=== PATIENT | female | born 2000 | race Caucasian/White ===

== ENCOUNTER 2024-01-19 04:50 | Inpatient (IN) | payer OTHER ==
[2024-01-19] MEDS ORDERED: miSOPROStoL 200 MCG TAB RECTAL PRN (08:12)
[2024-01-19] MEDS ORDERED: TERBUTALINE 1 MG/ML VIAL SQ PRN (08:12)
[2024-01-19] MEDS ORDERED: METHYLERGONOVINE 0.2 MG/ML 1 ML AMP IM PRN (08:12)
[2024-01-19] MEDS ORDERED: TRANEXAMIC 1,000 MG/100ML-NACL 1,000 MG in EMPTY BAG 1 BAG IV PRN (08:12)
[2024-01-19] MEDS ORDERED: CARBOPROST TROMETHAMINE 250 MCG/ML 1 ML AMP IM PRN (08:12)
[2024-01-19] MEDS ORDERED: miSOPROStoL 200 MCG TAB PO PRN (08:12)
[2024-01-19] MEDS ORDERED: OXYTOCIN 10 UNIT/ML 1 ML VIAL IM PRN (08:12)
[2024-01-19] MEDS: NALBUPHINE 10 MG/ML (10 ML MDV) IV PRN (08:22)
[2024-01-19] MEDS: LACTATED RINGERS 1,000 ML IV SCH (08:23)
[2024-01-19 08:38] LABS: Basophils % (A) 0 %; Eosinophils % (A) 0 %; HCT 37.8 % (34.0-46.0); HGB 12.8 gm/dL (11.4-16.0); Lymphocytes # (A) 1.6 k/uL (1.0-4.8); Lymphocytes % (A) 13 %; MCH 30.8 pg (25.0-35.0); MCHC 33.9 g/dL (31.0-37.0); MCV 90.9 fL (80.0-100.0); Mean Platelet Volume 11.3; Monocytes # (A) 0.5 k/uL (0-1.0); Monocytes % (A) 4 %; Neutrophils # (A) 10.8 k/uL (1.3-7.7); Neutrophils % (A) 82 %; Platelet Count 144 k/uL (150-450); RBC 4.16 m/uL (3.80-5.40); RDW 12.5 % (11.5-15.5); WBC 13.2 k/uL (3.8-10.6)
[2024-01-19 08:57] VITALS: RESP 16
--- NOTE | 2024-01-19 09:21 | P.HPOB ---
History of Present Illness H&P Date: 01/19/24 Chief Complaint: uterine contractions Ms. Zapien is a 23 year old at 39 weeks and 6 days with EDC of 01/20/2024 by 7 week US who presents with regular, painful uterine contractions. 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 She also vaped tobacco during the . The fetus is estimated to be in the 65%ile based on a 32 week US. work-up: blood type O positive, antibody screen negative, rubella immune, VDRL non-reactive, HBsAg negative, HIV negative, HCV Ab non-reactive, gonorrhea negative, chlamydia negative, 1 hour GTT wnl, GBS negative. Past Medical History Past Medical History: No Reported History History of Any Multi-Drug Resistant Organisms: None Reported Past Surgical History: No Surgical Hx Reported Past Anesthesia/Blood Transfusion Reactions: No Reported Reaction Past Psychological History: No Psychological Hx Reported Smoking Status: Vaper Past Alcohol Use History: None Reported Past Drug Use History: None Reported - Past Family History Mother Family Medical History: No Reported History Medications and Allergies Home Medications Medication Instructions Recorded Confirmed Type Vit No.179/Iron/Folic 1 each PO DAILY 01/19/24 01/19/24 History [ Tablet] Allergies Allergy/AdvReac Type Severity Reaction Status Date / Time No Known Allergies Allergy Verified 01/19/24 05:44 Exam Vital Signs Temp Pulse Resp BP Pulse Ox 01/19/24 08:50 97.5 F L 85 16 128/84 96 Intake and Output 01/18/24 01/19/24 01/19/24 22:59 06:59 14:59 Other: Weight 86.183 kg 86.183 kg Focused physical exam is performed. This is a healthy-appearing in no apparent distress. Breathing is non-labored. Abdomen is gravid and non-tender. Cervical exam is 7/90/-2. AROM is undertaken with clear fluid noted. Extremities non-tender and non-edematous. heart tones are Category I and t ocometer is graphing contractions every 2-4 minutes. Results Result Diagrams: 01/19/24 08:15 Abnormal Lab Results - Last 24 Hours (Table) 01/19/24 Range/Units 08:15 WBC 13.2 H (3.8-10.6) k/uL Plt Count 144 L (150-450) k/uL Neutrophils # 10.8 H (1.3-7.7) k/uL Assessment and Plan Assessment: 23 year old at 39 weeks and 6 days presenting in spontaneous labor Plan: Admit, clear liquid diet, s/p AROM, epidural prn, continuous EFM and tocometer
[2024-01-19] MEDS: OXYTOCIN 30 UNITS/500 ML NS 30 UNIT in SALINE 1 500ML.BAG IV SCH (13:15)
[2024-01-19] MEDS ORDERED: fentaNYL (PF) 50 MCG/ML 5 ML AMP ONE (13:18)
[2024-01-19] MEDS ORDERED: SODIUM CHLORIDE 0.9% 250 ML BAG ONE (13:18)
[2024-01-19] MEDS ORDERED: ROPIVACAINE 5 MG/ML 30 ML VIAL ONE (13:18)
[2024-01-19] MEDS: ROPIVACAINE 225 MG, fentaNYL (PF). 450 MCG in SODIUM CHLORIDE 0.9% 171 ML EPIDURAL ONE (18:18)
[2024-01-19] MEDS: LIDOCAINE 0.5% (PF) 5 MG/ML (50 ML SDV) SQ PRN (20:47)
[2024-01-19] MEDS ORDERED: HYDROCORTISONE 2.5% RECTAL CREAM 30 GM TUBE RECTAL PRN (21:22)
[2024-01-19] MEDS ORDERED: BENZOCAINE/MENTHOL SPRAY 1 GM/SPRAY AEROSOL TOPICAL PRN (21:22)
[2024-01-19] MEDS ORDERED: ZOLPIDEM 5 MG TAB PO PRN (21:22)
[2024-01-19] MEDS ORDERED: diphenhydrAMINE 50 MG/ML 1 ML VIAL IVP PRN ×2 (21:22)
[2024-01-19] MEDS ORDERED: SIMETHICONE 80 MG CHEWABLE PO PRN (21:22)
[2024-01-19] MEDS ORDERED: LANOLIN CREAM 1 GM TUBE TOPICAL PRN (21:22)
[2024-01-19] MEDS ORDERED: diphenhydrAMINE 50 MG CAP PO PRN (21:22)
[2024-01-19] MEDS ORDERED: diphenhydrAMINE 25 MG CAP PO PRN (21:22)
[2024-01-19] MEDS: IBUPROFEN 600 MG TAB PO PRN (21:35)
--- NOTE | 2024-01-19 21:57 | P.PROBDLV ---
Vaginal Delivery Note - . Vaginal Delivery Note: ATTENDING: Dr. Caryn Contreras MD ESTIMATED BLOOD LOSS: 200 mL FINDINGS: VMI, Apgars 7/9. Weight 8 pounds and 4 oucnes (3730 grams) PROCEDURE: Ms. Zapien is a 23 year old at 39 weeks and 6 days presenting to labor and delivery in active labor. She is found to be 7cm dilated with a bulging bag. AROM was performed at 906 revealing clear amniotic fluid. The patient received epidural anesthesia per her request. Pitocin augmentation was started.The patient was completely dilated at 1850. She pushed effectively with Category I heart tones. A viable male infant was delivered without difficulty at 2042 through a body cord. The infant was placed on the maternal abdomen and bulb suctioned. The was noted to be spontaneously crying. Cord was clamped and cut after a 30-second delay. The infant was handed off to the pediatric team. Placenta was delivered whole with gentle cord traction at 2046. Oxytocin was started to facilitate uterine tone. Uterine fundus was found to be firm and below the umbilicus upon fundal massage. Thorough examination of the cervix, vagina, periurethral area, and perineum revealed a small second degree laceration which was infiltrated with lidocaine and repaired with 2-0 vicryl in the usual fashion. There was an extension into the left labia which was repaired with 2-0 Vicryl in an interrupted fashion .The patient is stable and allowed to begin the bonding process.
[2024-01-20 06:22] LABS: Basophils % (A) 0 %; Eosinophils # (A) 0.1 k/uL (0-0.7); Eosinophils % (A) 1 %; HCT 30.5 % (34.0-46.0); HGB 10.6 gm/dL (11.4-16.0); Lymphocytes # (A) 1.4 k/uL (1.0-4.8); Lymphocytes % (A) 7 %; MCH 31.8 pg (25.0-35.0); MCHC 34.9 g/dL (31.0-37.0); MCV 90.9 fL (80.0-100.0); Mean Platelet Volume 11.5; Monocytes # (A) 0.7 k/uL (0-1.0); Monocytes % (A) 4 %; Neutrophils # (A) 16.4 k/uL (1.3-7.7); Neutrophils % (A) 88 %; Platelet Count 109 k/uL (150-450); RBC 3.35 m/uL (3.80-5.40); RDW 13.1 % (11.5-15.5); WBC 18.6 k/uL (3.8-10.6)
[2024-01-20] MEDS: ACETAMINOPHEN TAB 325 MG TAB PO PRN (08:53)
[2024-01-20] MEDS: SENNOSIDES-DOCUSATE SODIUM 1 EACH TAB PO SCH (08:53)
--- NOTE | 2024-01-20 09:30 | P.DS ---
Providers Date of admission: 01/19/24 08:04 Expected date of discharge: 01/20/24 Attending physician: Caryn Contreras MD Primary care physician: Stated None Hospital Course: 23 year old now PPD#1 s/p normal vaginal delivery. The patient is doing well this morning and had no acute events overnight. She has no complaints this morning. She reports minimal lochia, passing flatus, voiding without difficulty, ambulating, and eating/drinking without nausea or vomiting. Infant doing well at bedside, plan for circumcision later today once baby has voided. She denies chest pain, shortness of breathing, fevers, or chills overnight. She denies pain or swelling in the legs. restrictions are reviewed with the patient including pelvic rest for 6 weeks. The patient is encouraged to call the office if she experiences any heavy bleeding, foul-smelling discharge, breast complaints, or any if she has any other concerns. She will follow up in the office with in 6 weeks for exam. She will be discharged home with Motrin and Tylenol as needd for pain as well as ferrous sulfate to be taken every other day. All questions are answered. Assessment: 23 year old now PPD#1 s/p Patient Condition at Discharge: Good Plan - Discharge Summary New Discharge Prescriptions: New RX: Ferrous Sulfate [Iron (65 MG Elemental)] 325 mg PO DAILY #30 tab Ibuprofen [Motrin] 600 mg PO Q6HR PRN #30 tab PRN Reason: Mild Pain (Scale 1 To 3) Acetaminophen Tab [Tylenol] 650 mg PO Q6H PRN #30 tab PRN Reason: Mild Pain (Scale 1 To 3) No Action Vit No.179/Iron/Folic [ Tablet] 1 each PO DAILY Discharge Medication List Vit No.179/Iron/Folic [ Tablet] 1 each PO DAILY 01/19/24 [History] Acetaminophen Tab [Tylenol] 650 mg PO Q6H PRN #30 tab 01/20/24 [Rx] Ibuprofen [Motrin] 600 mg PO Q6HR PRN #30 tab 01/20/24 [Rx] RX: Ferrous Sulfate [Iron (65 MG Elemental)] 325 mg PO DAILY #30 tab 01/20/24 [Rx] Follow up Appointment(s)/Referral(s): Caryn Contreras MD [STAFF PHYSICIAN] - 6 Weeks Activity/Diet/Wound Care/Special Instructions: Instructions 1. Do not begin any exercise program for 3 weeks. 2. Do not resume sexual relations for 6 weeks or longer if uncomfortable. 3. You may take tub baths or showers at any time. 4. You may use tampons if desired after 6 weeks. 5. Keep any areas repaired with stitches clean and dry. 6. If you are not nursing, wear a good fitting, supportive bra during the day and limit fluid intake for at least 1 week to prevent breast engorgement. 7. Call the office, , within the next week to make appointment for your 6 week checkup if it has not already been made. 8. Report any of the following occurrences to the doctor promptly: a. Heavy, excessive bleeding b. Chills, fever c. Burning or frequency of urination d. Pain or redness and breasts if nursing e. Increasing pain or swelling of vulva (stitches). In addition to the above instructions, the following additional should be followed: 1. No heavy lifting or straining (exercising) until after 6 week checkup. 2. Keep abdominal incision clean and dry: You may wear a dressing if more comfortable. 3. Make office appointment for 2 weeks after delivery date. Discharge Disposition: HOME SELF-CARE
[2024-01-20 16:15] VITALS: BP 123/83; PULSE 66; TEMP 98
== END 2024-01-20 21:20 | disposition home or self-care (01) | DRG 806 ==
LOC: FBPOP 04:50 → 4FBP 08:04
PROVIDERS: ADMIT Obstetrics & Gynecology; ATTEND Obstetrics & Gynecology
PROC: 10E0XZZ Delivery of Products of Conception, External Approach (ICD-10-PCS; principal; 2024-01-19)
PROC: 0KQM0ZZ Repair Perineum Muscle, Open Approach (ICD-10-PCS; 2024-01-19)
PROC: 10907ZC Drainage of Amniotic Fluid, Therapeutic from Products of Conception, Via Natural or Artificial Opening (ICD-10-PCS; 2024-01-19)
PROC: 3E033VJ Introduction of Other Hormone into Peripheral Vein, Percutaneous Approach (ICD-10-PCS; 2024-01-19)
PROC: 4A1HXCZ Monitoring of Products of Conception, Cardiac Rate, External Approach (ICD-10-PCS; 2024-01-19)
DX: O99.12 Other diseases of the blood and blood-forming organs and certain disorders involving the immune mechanism complicating childbirth (principal); D68.51 Activated protein C resistance; Z37.0 Single live birth; O70.1 Second degree perineal laceration during delivery; Z3A.39 39 weeks gestation of pregnancy
CPT/HCPCS: 59025; 85025; 86850; 86900; 86901; 99213